=== PATIENT | male | born 1985 | race Two or more races ===

== ENCOUNTER 2021-09-16 10:30 | Emergency (ER) | payer SELFPAY ==
[~2021-09-16] VITALS: Ht 170.2 cm; Wt 77.1 kg
--- NOTE | 2021-09-16 10:37 | NUR ---
[facility], C/O ABDOMINAL PAIN, NAUSEA, VOMITING AND DIARRHEA SINCE YESTERDAY, ZOFRAN 4MG PO GIVEN EN ROUTE, DR RANGEL AT BEDSIDE
--- NOTE | 2021-09-16 10:58 | NUR ---
URINE SAMPLE COLLECTED AND SENT TO LAB
[2021-09-16] MEDS ORDERED: LIDOCAINE VISCOUS 2% UD 15 ML UDC MM ONE (11:00)
[2021-09-16] MEDS ORDERED: IV NS 0.9% 1,000 ML BAG IV ONE (11:00)
[2021-09-16] MEDS ORDERED: ONDANSETRON HCL/PF 4 MG/2 ML VIAL IVP ONE (11:00)
[2021-09-16] MEDS ORDERED: BACITRACIN ZINC OINT PACKET 1 EA PACKET TP ONE ×2 (11:00→11:03)
[2021-09-16] MEDS ORDERED: FAMOTIDINE/PF INJ 20 MG/2 ML VIAL IV ONE ×2 (11:00→11:03)
[2021-09-16] MEDS ORDERED: MAG HYDROX/AL HYDROX/SIMETH 30 ML UDC PO ONE (11:00)
[2021-09-16] MEDS ORDERED: TDAP [DIPH/PERTUSSIS/TET] 0.5 ML VIAL IM ONE ×2 (11:00→11:03)
[2021-09-16] MEDS ORDERED: MAG HYDROX/AL HYDROX/SIMETH 30 ML UDC ONE (11:02)
[2021-09-16] MEDS ORDERED: LIDOCAINE VISCOUS 2% UD 15 ML UDC ONE (11:03)
[2021-09-16] MEDS ORDERED: ONDANSETRON HCL/PF 4 MG/2 ML VIAL ONE (11:03)
--- NOTE | 2021-09-16 11:12 | NUR ---
SALINE LOCK ESTABLISHED, BLOOD DRAWN AND SENT TO LAB
--- NOTE | 2021-09-16 11:13 | NUR ---
X RAY AT BEDSIDE
[2021-09-16 11:32] LABS: BASOPHILS % (AUTO) 0.2 % (0.0-2.0); EOSINOPHILS % (AUTO) 0.8 % (0.0-6.0); HEMATOCRIT 52 % (39-51); LYMPHOCYTES # (AUTO) 1.9 K/uL (0.8-4.8); MEAN CORPUSCULAR HGB CONC 33 g/dl (31.0-36.0); MEAN CORPUSCULAR VOLUME 92 fL (80-96); MONOCYTES # (AUTO) 0.8 K/uL (0.1-1.30); MONOCYTES % (AUTO) 5.1 % (2.0-12.0); NEUTROPHILS # (AUTO) 12.9 K/uL (1.8-8.9); NEUTROPHILS % (AUTO) 81.9 % (43.0-81.0); PLATELET COUNT (AUTO) 344 K/uL (150-450); RED BLOOD CELL COUNT(AUTO) 5.64 MIL/uL (4.5-6.0); WHITE BLOOD COUNT (AUTO) 15.7 K/uL (4.3-11.0)
[2021-09-16] MEDS ORDERED: ONDA4TAB5 PO (11:33)
[2021-09-16] MEDS ORDERED: FAMO-131 PO (11:33)
[2021-09-16 11:39] LABS: BILIRUBIN,URINE SMALL (NEGATIVE); COLOR,URINE DARK YELLOW (YELLOW); LEUKOCYTE ESTERASE ,URINE NEGATIVE (NEGATIVE); NITRITE, URINE NEGATIVE (NEGATIVE); PROTEIN,URINE 100 mg/dl (NEGATIVE); UGLUCOSE NEGATIVE (NEGATIVE); UROBILINOGEN,URINE 0.2 EU/dL (0.2)
[2021-09-16 12:14] LABS: ALBUMIN 4.6 g/dL (3.4-5.0); BILIRUBIN,DIRECT 0.1 mg/dL (0.0-0.2); BILIRUBIN,TOTAL 0.3 mg/dL (0.2-1.0); CALCIUM, SERUM 9.2 mg/dL (8.5-10.1); POTASSIUM 4.4 mmol/L (3.5-5.1); TOTAL PROTEIN, SERUM 9.3 g/dL (6.4-8.2)
[2021-09-16 12:22] LABS: BACTERIA,URINE Rare /HPF (None Seen); RBC,URINE 0-2 /HPF (0-2); SQUAMOUS EPITHELIAL CELL,UR Rare /HPF (None Seen)
[2021-09-16] MEDS ORDERED: CEPH500C2 PO (12:52)
[2021-09-16] MEDS ORDERED: SULF1TAB48 PO (12:52)
--- NOTE | 2021-09-16 14:05 | NUR ---
SEEN BY KAY GREGORY. WAS PROVIDED W/ HOMELESS REFFERALS AND BUS PASS. Patient discharged to home in stable condition. Written and verbal after care instructions given. Patient verbalizes understanding of instruction.IV removed. Catheter intact and site benign. Pressure and 4x4 applied to site. No bleeding noted.
[2021-09-16 14:17] VITALS: BP 132/80
== END 2021-09-16 14:18 | disposition home or self-care (01) ==
LOC: ER 10:43
DX: T23.202A Burn of second degree of left hand, unspecified site, initial encounter (principal); R11.2 Nausea with vomiting, unspecified; R19.7 Diarrhea, unspecified; R10.13 Epigastric pain; N39.0 Urinary tract infection, site not specified; F15.10 Other stimulant abuse, uncomplicated; F12.10 Cannabis abuse, uncomplicated; F17.200 Nicotine dependence, unspecified, uncomplicated; Z59.00 Homelessness unspecified; Z60.2 Problems related to living alone; Z79.899 Other long term (current) drug therapy; X08.8XXA Exposure to other specified smoke, fire and flames, initial encounter; Y93.89 Activity, other specified; Y92.89 Other specified places as the place of occurrence of the external cause; Y99.8 Other external cause status
CPT/HCPCS: 16020; 36415; 71045; 80048; 80076; 80307; 80320; 81001; 83690; 85025; 87086; 90471; 90715; 96361; 96374; 96375; 99284; 99406; A6403; J2405; J3490; J7030; G0480